=== PATIENT | male | born 1990 | race Caucasian/White ===

== ENCOUNTER 2021-04-05 19:41 | Emergency (ER) | payer OTHER ==
[2021-04-05] MEDS ORDERED: AMOXICILLIN500 MG PO (21:12)
[2021-04-05] MEDS ORDERED: CLARITIN10 M1 PO (21:12)
[2021-04-05 21:27] VITALS: BP 140/89
== END 2021-04-05 21:27 | disposition home or self-care (01) | DRG 153 ==
LOC: ED 19:41
DX: J02.9 Acute pharyngitis, unspecified (principal); Z20.822 Contact with and (suspected) exposure to COVID-19